=== PATIENT | female | born 1945 | race Caucasian/White ===

== ENCOUNTER → 2023-09-15 13:48 | Outpatient (REF) | payer OTHER, SELFPAY | LOC: HWRAD 13:48 | PROVIDERS: ATTENDING PHYSICIAN Internal Medicine; REFERRING PHYSICIAN Obstetrics & Gynecology | DX: Z78.0 Asymptomatic menopausal state (principal); Z12.31 Encounter for screening mammogram for malignant neoplasm of breast | CPT/HCPCS: 77063; 77067; 77080 ==

== ENCOUNTER → 2024-02-28 12:44 | Outpatient (REF) | payer OTHER, SELFPAY | LOC: EMG 12:44 | PROVIDERS: ATTENDING PHYSICIAN Podiatrist Foot & Ankle Surgery; FAMILY PHYSICIAN Internal Medicine | DX: R20.0 Anesthesia of skin (principal); G62.9 Polyneuropathy, unspecified | CPT/HCPCS: 95886; 95911 ==

== ENCOUNTER → 2024-10-25 13:10 | Outpatient (REF) | payer OTHER, SELFPAY | LOC: HWWDC 13:10 | PROVIDERS: ATTENDING PHYSICIAN Internal Medicine | DX: Z12.31 Encounter for screening mammogram for malignant neoplasm of breast (principal) | CPT/HCPCS: 77063; 77067 ==